=== PATIENT | male | born 1970 | race Caucasian/White ===

== ENCOUNTER 2020-05-25 13:34 | Emergency (ER) | payer OTHER, SELFPAY ==
--- NOTE | ~2020-05-25 | XR_ITS ---
EXAMINATION: XR chest 1V portable DATE: 05/25/2020 14:39 INDICATION: Cough and fever. TECHNIQUE: A single frontal view of the chest was obtained. COMPARISON: Chest 2 views 06/19/2017 FINDINGS: The chest demonstrates clear lungs without pneumonia, pleural effusion, or pneumothorax. Th e heart size is normal. IMPRESSION: 1. No acute cardiopulmonary disease. Reviewed, dictated and finalized at location B.
--- NOTE | 2020-05-25 14:00 | ECG_ITS ---
Measurements Intervals [place] Rate: 82 P: 81 CT: 126 QRS: 84 QRSD: 97 T: 72 QT: 365 QTc: 429 Interpretive Statements SINUS RHYTHM MINIMAL Q WAVES- INFERIOR LEADS BASELINE ARTIFACT- I, III, AVL BORDERLINE ECG Electronically Signed On 05-25-2020 14:33:12 CDT by Henry Gomez D.O.
--- NOTE | 2020-05-25 14:17 | ED.FEVER ---
HPI - Fever General Chief Complaint: Chest Pain Stated Complaint: cough, fever Time Seen by Provider: 05/25/20 13:39 Source: patient Mode of arrival: ambulatory Limitations: no limitations History of Present Illness HPI Narrative: This patient is a 49 year old male smoker who presents for evaluation of 4 days ago fever and fatigue. He reports he has not felt well for 4 days. He has fever, chills, and cough. His cough is clear phlegm. He reports constant chest pressure for 4 days and sob. His last fever was 101 F today. He denies nausea, vomiting or diarrhea. He denies sick known contacts. MD elicited complaint: fever and malaise Related Data Allergies Allergy/AdvReac Type Severity Reaction Status Date / Time epinephrine Allergy Unknown i flop on Verified 08/02/19 08:47 the floor tramadol AdvReac Mild Jittery Verified 08/02/19 08:47 Review of Systems Review of Systems: All systems reviewed & are unremarkable except as noted in HPI and below Constitutional: Constitutional: Reports fatigue and Reports fever(s) ENT: Reports nasal congestion Cardiovascular: Cardiovascular: Reports chest pain, Denies rapid heart rate and Denies slow heart rate Respiratory: Respiratory: Reports cough and Reports dyspnea Gastrointestinal: Gastrointestinal: Denies abdominal pain, Denies nausea and Denies vomiting Neurologic: Denies dizziness and Denies headache(s) PMFSH Past Medical History Medical History (Updated 05/25/20 @ 16:07 by Margarette Chauhan MD) Patient denies medical problems Surgical History Surgical History (Updated 05/25/20 @ 14:29 by Margarette Chauhan MD) No significant past surgical history Family History Family History (Updated 06/09/14 @ 07:13 by DOCTOR UNKNOWN) Other Family history of arthritis Family history of malignant neoplasm Hypertension Social History Social History Smoking status: Smoker, status unknown Alcohol intake: current Gender identity (if verbalized by the patient): Male Exam Narrative: Exam Narrative: GENERAL: Well-appearing, well-nourished, and in no acute distress. HEAD: Normocephalic, atraumatic EYES: PERRLA and EOMI, conjunctiva clear without discharge EARS: TM's clear bilaterally without erythema or dullness NOSE: Nares clear, no rhinorrhea or epistaxis THROAT:Mucous membranes moist, Oropharynx normal without erythema, exudate, peritonsillar swelling or fluctuance NECK: Supple, without lymphadenopathy or mass RESPIRATORY: No respiratory distress, Airway patent, Respirations non-labored, Clear to auscultation without rales, rhonchi or wheeze HEART: Regular rate and rhythm. No murmur heard. Normal peripheral pulses. ABDOMEN: Soft, nontender, nondistended, normal active bowel sounds. No masses. No rebound or guarding, No organomegaly. EXTREMITIES: No edema, normal strength with full range of motion. SKIN: Warm, dry, normal color without rash NEURO: Alert and oriented x3. CN 2-12 grossly intact. No focal deficits. PSYCH: Normal mood and affect. Course Reevaluation(s) Reevaluation #1: Nursing staff was stickin patient for blood and an IV. Patient became dizzy and had vasovagal episode. Hr dropped to 42 and BP dropped to 84/56. Nursing staff laid patient back in supine position with improvement of symptoms. His BP is now 109/80 Date: 05/25/20 Time: 15:10 Reevaluation #2: I Discussed with patient about labs and chest xray. He is stable for discharged. I have discussed that his sodium is slightly decreased and this is likely due to his alcohol use. Date: 05/25/20 Time: 16:04 Vital Signs Vital signs: Vital Signs Temperature 98.7 F 05/25/20 14:21 Pulse Rate 82 05/25/20 14:21 Respiratory Rate 18 05/25/20 14:21 Blood Pressure 113/80 05/25/20 14:21 Pulse Oximetry 97 05/25/20 14:21 Temperature 98.7 F 05/25/20 14:21 Pulse Rate 72 05/25/20 16:31 Respiratory Rate 18 05/25/20 16:31 Blood Pressure 128/70
[2020-05-25 14:21] VITALS: BP 113/80; PULSE 82; PULSE 84; RESP 18; TEMP 37.1; O2SAT 97
[2020-05-25 14:40] VITALS: BP 80/50; PULSE 47; RESP 28; O2SAT 98
--- NOTE | 2020-05-25 14:42 | PC.NURSE ---
after IV insertion pt became pale, clammy and stated he didnt feel well. Pt HR dropped to 42 and BP dropped to 80/50. Pt laid down flat and monitored.
[2020-05-25 14:48] VITALS: BP 84/56; PULSE 74; RESP 22; O2SAT 99
[2020-05-25] MEDS: SODIUM CHLORIDE 0.9% IV 1,000 ML 999 ML IV CONT (14:50)
[2020-05-25 15:02] LABS: Basophils Absolute Auto 0.1 K/mm3 (0.0-0.1); Basophils Percent Auto 0.4 % (0.2-1.2); Eosinophils Absolute Auto 0.1 K/mm3 (0-0.3); Eosinophils Percent Auto 0.3 % (0-4.4); Hematocrit 46.9 % (42.0-52.0); Immature Granulocyte Absolute 0.11 K/mm3 (0.00-0.031); Immature Granulocyte Percent A 0.7 % (0-0.5); Lymphocytes Absolute Auto 2.25 K/mm3 (0.9-3.2); Lymphocytes Percent Auto 15.1 % (18.3-44.2); Mean Corpuscular HGB Conc 34.1 g/dl (32-36); Mean Corpuscular Hemoglobin 32.7 pg (26-34); Mean Corpuscular Volume 95.7 fl (80-100); Mean Platelet Volume 8.9 fl (7.4-10.4); Monocytes Percent Auto 6.7 % (2.6-8.5); Neutrophils Absolute Auto 11.4 K/mm3 (1.3-6.7); Neutrophils Percent Auto 76.8 % (45.5-73.1); Platelet Count Result 229 k/mm3 (150-375); White Blood Count 14.9 K/mm3 (4.5-10.0)
[2020-05-25 15:16] LABS: Alanine Aminotransferase 42 U/L (4-50); Albumin Level 4.2 g/dL (3.5-5.1); Alkaline Phosphatase 92 U/L (38-126); Anion Gap 7 mmol/L (8-16); Aspartate Amino Transferase 40 U/L (17-59); Bilirubin,Total 0.9 mg/dL (0.2-1.3); Blood Urea Nitrogen 9 mg/dL (9-20); CRP 6.5 mg/dL (<1.0); Calcium 9.4 mg/dL (8.4-10.2); Carbon Dioxide 31 mmol/L (22-30); Chloride 94 mmol/L (98-107); Estimated Glomerular Filt Rate > 60; Glucose 137 mg/dL (75-110); Potassium 3.8 mmol/L (3.4-5.0); Sodium 132 mmol/L (137-145)
[2020-05-25 15:25] LABS: Troponin I < 0.012 ng/mL (0.000-0.034)
[2020-05-25 15:29] VITALS: BP 118/84; PULSE 68; RESP 18; O2SAT 98
[2020-05-25 15:48] LABS: Add Urine Microscopic? YES; Appearance Urine Clear (Clear); Bacteria Urine Trace /hpf; Bilirubin Urine Negative (Negative); Blood Urine Negative (Negative); Color Urine Amber (Yellow); Glucose Urine UA 3+ mg/dL (Negative); Ketones Urine Negative (Negative); Leukocyte Esterase Ur Negative LEU/UL (Negative); Mucus Urine Heavy /lpf; Nitrate Urine Negative (Negative); Protein Urine 1+ mg/dL (Negative); RBC Urine 0-2 /hpf (0-2); Specific Grav Ur 1.026 (1.001-1.035); Squamous Epithelial Cell Urine Rare /hpf (Few)
[2020-05-25 16:31] VITALS: BP 128/70; PULSE 72; RESP 18; O2SAT 98
[2020-05-26 01:07] LABS: SARS-CoV-2 RNA PCR Negative
== END 2020-05-25 16:32 | disposition home or self-care (01) ==
PROVIDERS: Emergency Provider General Practice; PCP Family Medicine
DX: E87.1 Hypo-osmolality and hyponatremia (principal); Z20.828 Contact with and (suspected) exposure to other viral communicable diseases
CPT/HCPCS: 36415; 71045; 80053; 81001; 84484; 85025; 86140; 87635; 93005; 96360; 96361; 99284; C9803; J7030; U0003

== ENCOUNTER 2021-08-17 19:07 | Emergency (ER) | payer OTHER, SELFPAY ==
--- NOTE | ~2021-08-17 | XR_ITS ---
XR wrist LT min 3V DATE: 08/17/2021 19:25 INDICATION: Fall. Left wrist injury, pain TECHNIQUE: 4 views COMPARISON: None FINDINGS: There is mild osteoarthritis at the first carpometacarpal joint. No fracture or dislocation, periosteal reaction or bone destruction is detected. Joint spaces are pre served. No erosive change or chondrocalcinosis. IMPRESSION: No fracture or dislocation Mild osteoarthritis at first carpometacarpal joint Reviewed, dictated and finalized at location A.
[2021-08-17 19:17] VITALS: BP 141/89; PULSE 93; RESP 16; TEMP 36.4; O2SAT 99
[2021-08-17 19:20] VITALS: BP 141/89; PULSE 93; RESP 16; TEMP 36.4; O2SAT 99
--- NOTE | 2021-08-17 19:42 | ED.UPPEXIN ---
HPI - Extremity Injury (Upper) General Chief Complaint: Extremity Injury, Upper Stated Complaint: Left wrist Pain Source: patient and RN notes reviewed Limitations: no limitations History of Present Illness HPI narrative: The right handed patient, previously mostly healthy, presents with left wrist pain. Patient states he slipped off a gutter striking solely his left wrist. He complains of mild pain that's worse with motion, better at rest ,located at an extensor cyst, which is now started to improve- since the event 3 hours ago. No other injury, neck pain, LOC, head?chest?abdominal?extremity pains. He declines available/in-house splinting for with a weather resistant, commercial splint Related Data Allergies Allergy/AdvReac Type Severity Reaction Status Date / Time epinephrine Allergy Unknown i flop on Verified 08/17/21 19:13 the floor tramadol AdvReac Mild Jittery Verified 08/17/21 19:13 Review of Systems Review of Systems: The patient has been informed that they may have pre-hypertension or Hypertension based on a BP reading in the department. I recommend that the patient call the primary care provider listed on their discharge instructions or a physician of their choice this week to arrange follow up for further evaluation of possible pre-hypertension or Hypertension General/Constitutional: No weight loss,fever Eyes: N0: Redness,discharge Ears/Nose/Throat: No: Epistaxis,ear discharge Respiratory: Denies: Hemoptysis Gastrointestinal: No Vomiting, Bleeding-rectal Skin: REPORTS Lumps, eruption Neurologic: No Focal Weakness,Sz Hematologic: Denies: Petechiae/Purpura Psychiatric: No: Suicida ideationl All Other Systems: Reviewed and Negative [facility] Past Medical History Medical History (Updated 08/19/21 @ 16:06 by Mamadou Navarrete MD) Patient denies medical problems Surgical History Surgical History (Updated 05/25/20 @ 14:29 by Margarette Chauhan MD) No significant past surgical history Family History Family History (Updated 06/09/14 @ 07:13 by DOCTOR UNKNOWN) Other Family history of arthritis Family history of malignant neoplasm Hypertension Social History Social History Smoking status: Smoker, status unknown Alcohol intake: current Gender identity (if verbalized by the patient): Male Comments At time of signature, agree with nursing past medical, surgical, social and family history. There is no relevant family history pertinent to the presenting complaint Exam Narrative: General Appearance: Well appearing, Well nourished, No distress EYE: PERRLA, EOMI, Conjunctiva clear Ears: External ear normal, Auditory canal normal Nose: Normal nose, Nares clear Mouth/Throat: Normal appearing, Normal lips Neck: Supple, nontender SROM/ FAROM Respiratory: Airway patent, No respiratory distress GI: soft, nontender Skin: Warm, Dry; Normal color, dime size ganglion cyst extensor wrist MS-wrist: Normal strength (mostly intact, limited flexion/extension by pain), Tenderness (extensor, with mild decreased ROM), Swelling -cystic, extensor , Other (no anterior drawer, no collateral laxity Neurological: A&O x3, Speech clear, CN II-XII intact Psychiatric: Normal mood, Normal affect Course Course Emergency Course: Films visualized, interpreted by radiologist, agree, normal see report Vital Signs Vital signs: Vital Signs Temperature 97.6 F 08/17/21 19:17 Pulse Rate 93 08/17/21 19:17 Respiratory Rate 16 08/17/21 19:17 Blood Pressure 141/89 H 08/17/21 19:17 Pulse Oximetry 99 08/17/21 19:17 Temperature 97.6 F 08/17/21 19:20 Pulse Rate 93 08/17/21 19:20 Respiratory Rate 16 08/17/21 19:20 Blood Pressure 141/89 H 08/17/21 19:20 Pulse Oximetry 99 08/17/21 19:20 Discharge Plan Discharge Clinical Impression: Ganglion cyst of finger of left hand, Encounter for post-traumatic wound check Osteoarthritis of left wrist Qualifiers: Osteoarthritis t
== END 2021-08-17 20:25 | disposition home or self-care (01) ==
PROVIDERS: Emergency Provider Emergency Medicine
DX: M67.442 Ganglion, left hand (principal); M19.032 Primary osteoarthritis, left wrist
CPT/HCPCS: 73110; 99213; G0463

== ENCOUNTER 2025-05-05 08:14 | Emergency (ER) | payer OTHER, SELFPAY ==
--- NOTE | ~2025-05-05 | CT_ITS ---
EXAM: CT abdomen pelvis wo con - 05/05/2025 10:35 CDT History: 54 years old Male with back pain TECHNIQUE: Multidetector CT of the abdomen and pelvis without contrast. Coronal and sagittal reforma ts were also provided for review. Automatic exposure control was used for this study. COMPARISON: None Available. FINDINGS: VISUALIZED CHEST: Multiple calcified granulomas are seen in the right hepatic lobe. ABDOMEN and PELVIS: LIVER: Within normal limits. GALLBLADDER: No calcified gallstones. BILE DUCTS: No dilatation. SPLEEN: Within normal limits. PANCREAS: Within normal limits. ADRENAL GLANDS: Within normal limits. KIDNEYS and URETERS: No hydronephrosis or hydroureter. No nephroureterolithiasis. URINARY BLADDER: Within normal limits. STOMACH and BOWEL: No abnormal bowel wall thickening. No obstruction. REPRODUCTIVE ORGANS: Within normal limits. MESENTERY/PERITONEAL CAVITY: No free fluid or pneumoperitoneum. LYMPH NODES: No abdominal or pelvic lymphadenopathy. ABDOMINAL WALL: Within normal limits. VASCULATURE: Within normal limits. MUSCULOSKELETAL: Multilevel degenerative changes of the spine. Grade 1 anterolisthesis of L4 on L5, l ikely degenerative. IMPRESSION: No evidence of acute pathology in the abdomen and pelvis. Reviewed, dictated and finalized at location A.
--- OUTSIDE RECORDS SUMMARY | 2025-05-05 08:17 | XMS_ITS | Continuity of Care Document ---
Author Organization [facility] Address [address] [facility] [place] [address] Phone Care Team Providers Care Manager Trade Name Role Phone Stephane Izquierdo MD Unavailable Unavailable Allergies, Adverse Reactions, Alerts Substance Reaction Status Criticality epinephrine Active No Information Medications Medication Instructions Dosage Effective Dates (start - stop) Status Comments fenofibrate 160 mg tablet take 1 tablet (160MG) by oral route every day 160 MG - Active Sandoval 5 mg-325 mg tablet take 1 tablet by oral route every 6 hours as needed for pain - Active avoid driving or operate machines naproxen 500 mg tablet take 1 tablet (500MG) by oral route 2 times every day with food 500 MG - Active Procedures Procedure Date OFFICE/OUTPATIENT VISIT, [facility] PREV VISIT, [facility], AGE 40-64 Advance Directives Directive Yes / No Effective Date File Name No Information Encounters Encounter Description Practice Location Reason(s) For Visit Diagnoses Date Provider Providers Copied on Encounter OFFICE/OUTPA TIENT VISIT, [facility], [address] [place], [place] [address], [id number], tel:[phone] [facility] back pain (chief complaint) LFT (chief complaint) alcohol (chief complaint) Unspecified chronic liver disease without mention of alcoholOther and unspecified hyperlipidemiaLumba goNondependent alcohol abuse, continuous drinking behavior [address]. [address] [facility] [place], [id number] , [place]. tel:[phone] Referring Provider: Stephane Izquierdo, [address], [place], [id number]. tel:[phone] PREV VISIT, NEW, AGE 40-64 [facility], [address] [place], [place], [id number], [place] tel:[phone] [facility] Medicine Physical (chief complaint) Routine Medical ExamRoutine Medical Exam [address]. [address], [place], [place], [id number] , [place]. tel:[phone] Family History Family Member Type Diagnosis Age At Onset Father Problem (finding) Hypertension Brother Problem (finding) Alive and well Mother Problem (finding) Alive and well Payers Payer name Insurance type Covered constitution party ID Authoriza tion(s) No Information Social History Type Description Quantity Date Captured Comments Alcohol Use Details 2 beers daily Caffeine Use Details Unknown Tobacco Use Status No Information Smoking Status Current every day smoker 2013 Sex Male Vital Signs Date / Time: Height Weight BMI Pulse Rate Blood Pressure Temperature Respiratory Rate Body Surface Area Head Circumference BMI percentile Pulse Ox Inhaled Ox 5:29 PM 66.00 in 141.00 lbs 22.7 6 kg/m eter (2) 77 /min 127/81 mm[Hg] 98.4 F 16 /min Chief Complaint And Reason For Visit From encounter dated '08/11/2014 15:30'. back pain (chief complaint) LFT (chief complaint) alcohol (chief complaint) Plan Of Treatment Date Type Action Status Goal Tobacco cessation counseling completed Goal Tobacco cessation counseling completed Referral Ordered: US EXAM, ABDOM, COMPLETE ordered Referral Ordered: KNEE XRAY TWO-VIEW Bilateral ordered History Of Present Illness Encounter Date Complaint History Of Prese nt Illness No Information Instructions Date Instruction Additional Infor mation No Information Assessments Type Assessment Date No Information Mental Status Date Cognitive Assessment Orientation - [place] ed to time, place, person, situation.
--- OUTSIDE RECORDS SUMMARY | 2025-05-05 08:17 | XMS_ITS | Data Portability ---
Author Organization [facility] LORRAINEAndrez Address [address] [place] [address] Assessment No assessment recorded. Plan of Treatment Reminders Order Date Submit Date Provider Last Modified By Organization Details Last Modified Time Details Appointments None recorded . Lab PSA, total, serum or plasma 2018 019 [facility], [address], [place], [address], 9 11:06:17 vitamin D, 25-hydro xy, total, serum 2018 019 [facility], [address], [place], [address], 9 11:06:17 CMP, serum or plasma 2018 [facility], [address], [place], [address], 9 09:31:41 lipid panel, serum 2018 019 [facility], [address], [place], [address], 9 11:01:03 hepatiti s C virus RNA, quant, PCR, serum or plasma 2018 019 [facility], [address], [place], [address], 9 10:59:54 hepatiti s B core Ab, total, serum 2018 019 [facility], [address], [place], [address], 9 10:59:53 vitamin D, 25-hydro xy, total, serum 2018 019 [facility], [address], [address], [place], [address], 9 15:30:52 lipid panel, serum 2018 019 [facility], [address], [place], [address], 9 15:30:53 CMP, serum or plasma [address] [facility], [address], [place], [address], 9 11:31:55 CBC w/ auto diff [address] [facility], [address], [place], [address], 9 11:31:55 testoste trudy, total, serum 2018 019 [facility], [address], [place], [address], 9 15:30:53 TSH, ultra-se nsitive, serum 2018 019 [facility], [address], [place], [address], 9 15:30:53 lipid panel, serum 2014 016 [facility], [address], [place], [address], 6 10:06:27 hepatiti s C virus RNA, quant, PCR, serum or plasma 2014 015 [address], [address], [place], [address], 5 10:11:20 hepatic function panel, serum 2014 015 [address], [address], [place], [address], 5 10:11:18 lipid panel, serum 2014 015 [address], [address], [place], [address], 6 11:28:09 drug screen, 5 drugs, urine 2014 015 [address], [address], [place], [address], 5 10:11:19 CBC w/ auto diff 2014 015 [address], [address], [place], [address], 5 07:39:14 CMP, serum or plasma 2014 015 [address], [address], [place], [address], 5 07:39:13 lipid panel, serum 2014 015 [address], [address], [place], [address], 5 07:39:13 urinalys is, complete 07/24/ 2015 07/24/2 015 [facility], [address], [place], [address], 5 07:39:14 hepatiti s C Ab, serum 2014 015 [facility], [address], [place], [address], 5 07:39:14 HIV (1+O+2) Ab, serum 2014 015 asavala [facility], [address], [place], [address], 5 10:05:03 Referral hepatolo gist referral - Please contact patient and schedule appt. Please send consult note after initial visit. Thank You 2018 019 [facility] Gastroenterol [facility]/Hepatolog y, [address], [place], [address], 0 14:28:13 physical therapy back referral 2018 019 [facility], [address], [place], [address], 9 11:10:18 interven [address] medicine speciali st referral - Chronic LBB, disc bulges, foramina l stenosis 2014 015 [email or web address] Torrey Ugarte MD, [address] [facility], [place], [address], 6 12:13:[address] referral - Chronic Hep C 2014 015 ARMEN Raya MD, [address] [facility], [place], [address], 6 12:34:24 physical therapy back referral - Chronic lower pain 2014 015 [facility] Occupational [facility], [address], [place], [address], 5 14:32:56 Procedures None recorded . Surgeries None recorded . Imaging XR, lumbar spine 2018 019 [facility], [address], [place], [address], 9 11:23:57 XR, hip, bilatera l, 3 or 4 view 2018 019 [facility], [address], [place], [address], 9 11:23:57 MRI, LS-spine - Low back pain 2014 015 [facility] (Admitting), [address], [place], [address], 5 20:14:00 x-ray, chest, 2 view - Smoker 2014 015 ARMEN Not available 5 15:04:00 ultrasou nd, liver - Liver disease 2014 015 ARM[facility] Not available 5 15:09:12 Medication Orders hydrocod one 5 mg-aceta minophen 325 mg tablet 2018 019 [email or web address] [facility], [address], [place], [address], 9 11:16:26 Patient TargetsNo targets recorded. Patient Instructions Encounter Date Encounter Id Patient Instructions Last Modified By Organization Details Last Modified Time 08/21/2015 [id number] high cholesterol : care instructions [email or web address] Not available 08/21/2015 17:26:38 03/25/2019 [id number] high cholesterol : care instructions Not available 03/25/2019 15:30:41 home sleep testing* [email or web address] Not available 04/26/2019 12:43:18 05/19/2019 [id number] hepatitis C: car e instructions [email or web address] Not available 05/19/2019 10:59:49 learning about hepatitis C [email or web address] Not available 05/19/2019 10:59:49 Reason for Referral Chronic lower pain Referring Physician: Asad Interiano, Internal Medicine, Encounter Date: 08/21/2015 Chronic Hep C Referring Physician: Asad Interiano, Internal Medicine, Encounter Date: 10/09/2015 Interventional Pain Medicine Specialist Referral for Low back pain Chronic LBB, disc bulges, foraminal stenosis Referring Physician: Asad Interiano, Internal Medicine, Encounter Date: 10/09/2015 Referring Physician: Dayna frausto, [facility], Encounter Date: 03/25/2019 [employer] Coord[employer] Referral for Vi ral hepatitis C Please contact patient and schedule appt. Please send consult note after initial visit. Thank You Referring Physician: Dayna Subramanian, [facility], Encounter Date: 05/19/2019 Results Created Date Observation Date Name Description Value Unit Range Abnormal Flag Note LastModifiedBy Organization Detail LastModifiedTime 05/23/20 15 05/24/2015 lipid panel , serum cholesterol, total 203 mg/dL 125-20 0 high Not Available [facility] [address] [address] [place], [address], 05/24/2015 07:39:12 05/23/20 15 05/24/2015 lipid panel , serum HDL cholesterol 86 mg/dL > or = 40 normal Not Available [facility] [address] [place], [address], 05/24/2015 07:39:12 05/23/20 15 05/24/2015 lipid panel , serum triglyceride s 70 mg/dL <150 normal Not Available [facility] [address] [place], [address], 05/24/2015 07:39:12 05/23/20 15 05/24/2015 lipid panel , serum LDL-choleste rol 103 mg/dL _(moriah c) <130 normal Mar able range <100 mg/dL for patie nts with CHD or diabe sandeep and <70 mg/dL for diabe tic patie nts with known heart disea se. Not Available [facility] [address], [place], [address], 05/24/2015 07:39:12 05/23/2005/24/2015 lipid panel , serum chol/HDLC ratio 2.4 (calc ) < or = 5.0 normal Not Available [facility] [address], [place], [address], 05/24/2015 07:39:12 05/23/20 15 05/24/2015 lipid panel , serum non HDL cholesterol 117 mg/dL _(moriah c) normal Targe t for non-H DL derick stero l is 30 mg/dL highe r than LDL derick stero l targe t. Not Available [facility] [address], [place], [address], 05/24/2015 07:39:12 05/23/2005/24/2015 HIV 1+2 Ab + HIV1 p24 Ag, quant itati ve immun oassa y, serum HIV Ag/Ab, 4TH gen NON-RE ACTIVE non-re active normal A Nonre activ e HIV Ag/Ab resul t does not exclu de HIV infec tion since the time frame for seroc onver trent is varia ble. If acute HIV infec tion is suspe cted, a HIV-1 RNA Quali tativ e TMA test is recom sean Diaz NOTE: This infor matio n has been discl osed to you from recor ds whose confi denti ality may be prote cted by state law. If your state requi res such prote ction , then the state law prohi bits you from leona escalera er discl osure of the infor matio n witho ut the speci fic writt en conse nt of the perso n to whom it perta ins, or as other burnette permi tted by law. A gener al autho lupe ion for the relea se of medic al or other infor matio n is NOT suffi cient for this purpo se. The perfo rmanc e of this assay has not been clini cristopher valid ated in patie nts less than 2 years old. For addit ional infor matio n pleas e refer to http: //[facility] [email or web address] jo.[email or web address] stdia gnost ics.c om/fa q/FAQ 106 (This link is being provi ded for infor matio nal/ educa chemo l purpo ses only. ) Not Available [facility] [address], [address], 05/24/2015 07:39:13 05/23/2005/24/2015 CMP, serum or plasm a glucose 89 mg/dL 65-99 normal Fasti ng refer ence inter art Not Available [facility] [address], [address], 05/24/2015 07:39:13 05/23/2005/24/2015 CMP, serum or plasm a urea nitrogen (BUN) 11 mg/dL 7-25 normal Not Available [facility] [address], [address], 05/24/2015 07:39:13 05/23/20 15 05/24/2015 CMP, serum or plasm a creatinine 0.80 mg/dL 0.60-1 .35 normal Not Available [facility] [address], [address], 05/24/2015 07:39:13 05/23/2005/24/2015 CMP, serum or plasm a eGFR non-afr. togolese 107 mL/mi n/1.7 3m2 > or = 60 normal Not Available [facility] [address], [address], 05/24/2015 07:39:13 05/23/20 15 05/24/2015 CMP, serum or plasm a eGFR 124 mL/mi n/1.7 3m2 > or = 60 normal Not Available [address], [address], 05/24/2015 07:39:13 05/23/20 15 05/24/2015 CMP, serum or plasm a BUN/creatini ne ratio NOT APPLIC ABLE (calc ) 6-22 Not Available [address], [address], 05/24/2015 07:39:13 05/23/20 15 05/24/2015 CMP, serum or plasm a sodium 141 mmol/ L 135-14 6 normal Not Available [address], [address], 05/24/2015 07:39:13 05/23/20 15 05/24/2015 CMP, serum or plasm a potassium 4.5 mmol/ L 3.5-5. 3 normal Not Available [address], [address], 05/24/2015 07:39:13 05/23/2005/24/2015 CMP, serum or plasm a chloride 101 mmol/ L 98-110 normal Not Available [address], [address], 05/24/2015 07:39:13 05/23/20 15 05/24/2015 CMP, serum or plasm a carbon dioxide 31 mmol/ L 19-30 high Not Available [address], [address], 05/24/2015 07:39:13 05/23/20 15 05/24/2015 CMP, serum or plasm a calcium 9.7 mg/dL 8.6-10 .3 normal Not Available [address], [address], 05/24/2015 07:39:13 05/23/20 15 05/24/2015 CMP, serum or plasm a protein, total 7.0 g/dL 6.1-8. 1 normal Not Available [address], [address], 05/24/2015 07:39:13 05/23/2005/24/2015 CMP, serum or plasm a albumin 4.4 g/dL 3.6-5. 1 normal Not Available [address], [address], 05/24/2015 07:39:13 05/23/2005/24/2015 CMP, serum or plasm a globulin 2.6 g/dL_ (calc ) 1.9-3. 7 normal Not Available [address], [address], 05/24/2015 07:39:13 05/23/20 15 05/24/2015 CMP, serum or plasm a albumin/glob ulin ratio 1.7 (calc ) 1.0-2. 5 normal Not Available [address], [address], 05/24/2015 07:39:13 05/23/2005/24/2015 CMP, serum or plasm a bilirubin, total 0.8 mg/dL 0.2-1. 2 normal Not Available [address] [address] [place], [address], 05/24/2015 07:39:13 05/23/2005/24/2015 CMP, serum or plasm a alkaline phosphatase 90 U/L 40-115 normal Not Available [facility] [address] [address] [place], [address], 05/24/2015 07:39:13 05/23/2005/24/2015 CMP, serum or plasm a AST 90 U/L 10-40 high Not Available [address] [address] [place], [address], 05/24/2015 07:39:13 05/23/2005/24/2015 CMP, serum or plasm a ALT 57 U/L 9-46 high Not Available [address], [address], 05/24/2015 07:39:13 05/23/20 15 05/24/2015 urina lysis , compl ete color DARK YELLOW yellow normal Not Available [address], [address], 05/24/2015 07:39:14 05/23/20 15 05/24/2015 urina lysis , compl ete appearance CLEAR clear normal Not Available [address], [address], 05/24/2015 07:39:14 05/23/20 15 05/24/2015 urina lysis , compl ete specific gravity 1.017 1.001- 1.035 normal Not Available [address], [address], 05/24/2015 07:39:14 05/23/20 15 05/24/2015 urina lysis , compl ete pH 6.5 5.0-8. 0 normal Not Available [address], [address], 05/24/2015 07:39:14 05/23/20 15 05/24/2015 urina lysis , compl ete glucose NEGATI VE negati ve normal Not Available [address], [address], 05/24/2015 07:39:14 05/23/20 15 05/24/2015 urina lysis , compl ete bilirubin NEGATI VE negati ve normal Not Available [address], [address], 05/24/2015 07:39:14 05/23/20 15 05/24/2015 urina lysis , compl ete ketones NEGATI VE negati ve normal Not Available [address] [place], [address], 05/24/2015 07:39:14 05/23/20 15 05/24/2015 urina lysis , compl ete occult blood NEGATI VE negati ve normal Not Available [facility] [address] [address] [place], [address], 05/24/2015 07:39:14 05/23/20 15 05/24/2015 urina lysis , compl ete protein NEGATI VE negati ve normal Not Available [facility] [address] [address] [place], [address], 05/24/2015 07:39:14 05/23/20 15 05/24/2015 urina lysis , compl ete nitrite NEGATI VE negati ve normal Not Available [facility] [place], [address], 05/24/2015 07:39:14 05/23/20 15 05/24/2015 urina lysis , compl ete leukocyte esterase NEGATI VE negati ve normal Not Available [facility] [address] [address] [place], [address], 05/24/2015 07:39:14 05/23/20 15 05/24/2015 urina lysis , compl ete WBC NONE SEEN /hpf < or = 5 normal Not Available [address] [address] [place], [address], 05/24/2015 07:39:14 05/23/20 15 05/24/2015 urina lysis , compl ete RBC NONE SEEN /hpf < or = 2 normal Not Available [facility] [address] [address] [place], [address], 05/24/2015 07:39:14 05/23/20 15 05/24/2015 urina lysis , compl ete squamous epithelial cells NONE SEEN /hpf < or = 5 normal Not Available [address] [address] [place], [address], 05/24/2015 07:39:14 05/23/20 15 05/24/2015 urina lysis , compl ete bacteria NONE SEEN /hpf none seen normal Not Available [address], [address], 05/24/2015 07:39:14 05/23/20 15 05/24/2015 urina lysis , compl ete hyaline cast NONE SEEN /lpf none seen normal Not Available [address], [address], 05/24/2015 07:39:14 05/23/20 15 05/24/2015 CBC w/ auto diff white blood cell count 5.7 thous and/u L 3.8-10 .8 normal Not Available [address], [address], 05/24/2015 07:39:14 05/23/20 15 05/24/2015 CBC w/ auto diff red blood cell count 4.49 dameon on/uL 4.20-5 .80 normal Not Available [address], [address], 05/24/2015 07:39:14 05/23/20 15 05/24/2015 CBC w/ auto diff hemoglobin 14.8 g/dL 13.2-1 7.1 normal Not Available [address], [address], 05/24/2015 07:39:14 05/23/20 15 05/24/2015 CBC w/ auto diff hematocrit 45.2 % 38.5-5 0.0 normal Not Available [address], [address], 05/24/2015 07:39:14 05/23/20 15 05/24/2015 CBC w/ auto diff MCV 100.7 fL 80.0-1 00.0 high Not Available [address], [address], 05/24/2015 07:39:14 05/23/20 15 05/24/2015 CBC w/ auto diff MCH 32.9 pg 27.0-3 3.0 normal Not Available [address], [address], 05/24/2015 07:39:14 05/23/20 15 05/24/2015 CBC w/ auto diff MCHC 32.7 g/dL 32.0-3 6.0 normal Not Available [address], [address], 05/24/2015 07:39:14 05/23/20 15 05/24/2015 CBC w/ auto diff RDW 13.7 % 11.0-1 5.0 normal Not Available [address], [address], 05/24/2015 07:39:14 05/23/20 15 05/24/2015 CBC w/ auto diff platelet count 234 thous and/u L 140-40 0 normal Not Available [address], [address], 05/24/2015 07:39:14 05/23/20 15 05/24/2015 CBC w/ auto diff MPV 7.2 fL 7.5-11 .5 low Not Available [address], [address], 05/24/2015 07:39:14 05/23/2005/24/2015 CBC w/ auto diff absolute neutrophils 3329 cells /uL 1500-7 800 normal Not Available [address], [address], 05/24/2015 07:39:14 05/23/20 15 05/24/2015 CBC w/ auto diff absolute lymphocytes 1807 cells /uL 850-39 00 normal Not Available [address], [address], 05/24/2015 07:39:14 05/23/20 15 05/24/2015 CBC w/ auto diff absolute monocytes 371 cells /uL 200-95 0 normal Not Available [address], [address], 05/24/2015 07:39:14 05/23/20 15 05/24/2015 CBC w/ auto diff absolute eosinophils 177 cells /uL 15-500 normal Not Available [address], [address], 05/24/2015 07:39:14 05/23/20 15 05/24/2015 CBC w/ auto diff absolute basophils 17 cells /uL 0-200 normal Not Available [address], [address], 05/24/2015 07:39:14 05/23/20 15 05/24/2015 CBC w/ auto diff neutrophils 58.4 % normal Not Available [address], [address], 05/24/2015 07:39:14 05/23/20 15 05/24/2015 CBC w/ auto diff lymphocytes 31.7 % normal Not Available [address], [address], 05/24/2015 07:39:14 05/23/20 15 05/24/2015 CBC w/ auto diff monocytes 6.5 % normal Not Available [address], [address], 05/24/2015 07:39:14 05/23/20 15 05/24/2015 CBC w/ auto diff eosinophils 3.1 % normal Not Available [address], [address], 05/24/2015 07:39:14 05/23/20 15 05/24/2015 CBC w/ auto diff basophils 0.3 % normal Not Available [address], [address], 05/24/2015 07:39:14 05/23/20 15 05/24/2015 hepat itis C virus Ab, serum hepatitis C antibody REACTI VE non-re active abnormal Not Available [address], [address], 05/24/2015 07:39:14 05/23/20 15 05/24/2015 hepat itis C virus Ab, serum signal to cut-off 27.00 <1.00 high After a posit jacqui Hepat itis C antib daylin test, an FDA-a pprov ed HCV CLAIRE (also refer red to as an HCV RNA test ) shoul d be used to ident leola HCV infec tion. A sampl e with a high S/CO ratio will repea t as posit jacqui using a diffe rent antib daylin detec tion metho dolog y 95% of the time or great er. ([facility] MMWR No. RR-3, 2002) . Addit ional antib daylin testi ng is not recom sean d. Not Available [address], [address], 05/24/2015 07:39:14 08/25/20 15 08/29/2015 hepat ic funct ion panel , serum protein, total 7.3 g/dL 6.1-8. 1 normal Not Available [address], [address], 09/05/2015 10:11:18 08/25/20 15 08/29/2015 hepat ic funct ion panel , serum albumin 4.7 g/dL 3.6-5. 1 normal Not Available [address], [address], 09/05/2015 10:11:18 08/25/20 15 08/29/2015 hepat ic funct ion panel , serum globulin 2.6 g/dL_ (calc ) 1.9-3. 7 normal Not Available [address], [address], 09/05/2015 10:11:18 08/25/20 15 08/29/2015 hepat ic funct ion panel , serum albumin/glob ulin ratio 1.8 (calc ) 1.0-2. 5 normal Not Available [address], [address], 09/05/2015 10:11:18 08/25/20 15 08/29/2015 hepat ic funct ion panel , serum bilirubin, total 1.0 mg/dL 0.2-1. 2 normal Not Available [address], [address], 09/05/2015 10:11:18 08/25/20 15 08/29/2015 hepat ic funct ion panel , serum bilirubin, direct 0.2 mg/dL < or = 0.2 normal Not Available [address], [address], 09/05/2015 10:11:18 08/25/20 15 08/29/2015 hepat ic funct ion panel , serum bilirubin, indirect 0.8 mg/dL _(moriah c) 0.2-1. 2 normal Not Available [address], [address], 09/05/2015 10:11:18 08/25/20 15 08/29/2015 hepat ic funct ion panel , serum alkaline phosphatase 74 U/L 40-115 normal Not Available [address] [address] [place], [address], 09/05/2015 10:11:18 08/25/20 15 08/29/2015 hepat ic funct ion panel , serum AST 104 U/L 10-40 high Not Available [address], [address], 09/05/2015 10:11:18 08/25/20 15 08/29/2015 hepat ic funct ion panel , serum ALT 75 U/L 9-46 high Not Available [address], [place], [address], 09/05/2015 10:11:18 08/25/20 15 08/29/2015 drug scree n, urine benzodiazepi felicitas negati ve Not Available [address], [place], [address], 09/05/2015 10:11:19 08/25/20 15 08/29/2015 drug scree n, urine cocaine negati ve Not Available [address], [place], [address], 09/05/2015 10:11:19 08/25/20 15 08/29/2015 drug scree n, urine marijuana negati ve Not Available [address], [place], [address], 09/05/2015 10:11:19 08/25/20 15 08/29/2015 drug scree n, urine methadone negati ve Not Available [address], [place], [address], 09/05/2015 10:11:19 08/25/20 15 08/29/2015 drug scree n, urine opiates POSITI VE abnormal Not Available [address], [place], [address], 09/05/2015 10:11:19 08/25/20 15 08/29/2015 drug scree n, urine comment SEE NOTE DRUG CLASS Initi al Confi rmati on Test Level Level Benzo diaze pines 300 NA Cocai ne Metab olite s 300 NA Marij uana Metab olite s 50 5 Metha done 300 NA Opiat es 300 NA *Thes e resul ts are for medic al treat ment only* *Anal ysis was perfo rmed as non-f orens ic testi ng* Not Available [facility] [address] [address] [address], [place], [address], 09/05/2015 10:11:19 08/25/20 15 08/29/2015 hepat itis C virus RNA, quant , PCR, serum or plasm a HCV RNA, quantitative real time PCR [id number] IU/mL <15 high Not Available [address], [address], 09/05/2015 10:11:20 08/25/20 15 08/29/2015 hepat itis C virus RNA, quant , PCR, serum or plasm a HCV RNA, quantitative real time PCR 5.83 log_I U/mL <1.18 high Not Available [facility] [address] [place], [address], 09/05/2015 10:11:20 08/25/20 15 08/29/2015 hepat itis C virus RNA, quant , PCR, serum or plasm a comment This test was perfo rmed using the KELLY (R)Am pliPr ep/ KELLY (R)Ta qMan( R)HCV Test, v2.0. The perfo rmanc e sebas cteri stics of this assay have been deter mined by [facility] aisha dueñas. Perfo rmanc e sebas cteri stics refer to the kathleen tical perfo rmanc e of the test. For more infor caro jo on this test, go to: http: //jonathon chaudhary stdia gnost ics.c om/fa q/FAQ 22v1 (This link is being provi ded for infor caro brownlee/ bentley mesa ses only. ) Not Available [facility] [address] [address] [place], [address], 09/05/2015 10:11:20 12/29/19 16 12/29/2015 lipid panel , serum cholesterol level 200 mg/dL 0-200 normal Not Available [facility] (Lab) [address], [place], [address], 12/29/2015 10:06:27 12/29/19 16 12/29/2015 lipid panel , serum triglyceride s level 71 mg/dL <150 mg/dL normal Not Available [facility] (Lab) [address] [place], [place] [address] [address] [place] [address], [address], 12/29/2015 10:06:27 12/29/19 16 12/29/2015 lipid panel , serum LDL direct cholesterol 77 mg/dL normal < 130 mg/dl MAR ABLE 130-1 59 mg/dl BORDE RLINE HIGH RISK > 160 mg/dl HIGH RISK Not Available [facility] (Lab) [address] [place] [address], [phone], 12/29/2015 10:06:27 12/29/19 16 12/29/2015 lipid panel , serum HDL direct cholesterol 94 mg/dL normal EXPEC ELIZABETH RANGE > 35 MG/DL Not Available [facility] (Lab) [address] [place] [address], [phone], 12/29/2015 10:06:27 12/29/19 16 12/29/2015 lipid panel , serum results ML - Produ cer Id infor matio n not found for OBX-s pecif ic produ cer legen d Not Available [facility] (Lab) [address] [place] [address], [phone], 12/29/2015 10:06:27 05/09/20 15 05/09/2015 XR, elbow , 3 or more view No observ ation record ed. [address], [address], 06/18/2016 14:29:13 05/09/20 15 05/09/2015 XR, hand, 3 or more view No observ ation record ed. [address], [address], 06/18/2016 14:29:35 05/09/20 15 05/09/2015 XR, wrist , 3 or more view No observ ation record ed. [address], [address], 06/18/2016 14:29:58 05/09/20 15 05/09/2015 XR, shoul zandra, 2 or more view No observ ation record ed. [email or web address] [facility] [address], [place], [address], 06/18/2016 14:30:20 06/09/20 15 06/09/2015 ultra sound , liver No observ ation record ed. [email or web address] Not Available 2014 16:24:40 06/09/20 15 06/09/2015 x-ray , chest , 2 view No observ ation record ed. [facility] [address], [place], [address], 08/21/2015 16:24:40 06/14/20 15 06/14/2015 imagi ng/di agnos tic resul t No observ ation record ed. oao Not Available 2014 16:24:40 06/14/20 15 06/14/2015 imagi ng/di agnos tic resul t No observ ation record ed. oao Not Available 2014 16:24:40 08/24/20 15 08/24/2015 mricw o PT NAME: ADOLFO FISCHER : 1970 PT SEX/AG E: M/44 PT ACCT NUMBER : [id number] PT MR#: [id number] ROOM/B ED: PT STATUS : REG CLI DATE OF EXAMIN ATION: ASHLEY YEH PHYSIC LARISSA: SERGIO INTERIANO * MUvaldo ATTEND ING PHYSIC LARISSA: SERGIO INTERIANO *, MUvaldo DICTAT ING PHYSIC LARISAS: ROB HUNTER M.D. 010 MRI LUMBAR SPINE W/O INDICA TION: Low back pain. TECHNI QUE: Multi- sequen tial, multip lanar MR images of the lumbar spine were obtain ed withou t contra st. Basurto al T1, T2, T2 fat satura tion images . Axial T2 weight ed images . The exam was review ed on . There are no prior studie s availa ble for compar danae. FINDIN GS: There is 3 mm retrol isthes is L5 on S1. The verteb ral bodies are otherw ise aligne d. Mild loss of the disc height L2-L3, mild to modera te at L5-S1. The conus medull savita termin ates at the T12 -L1 level and has normal signal intens ity and morpho logy. There are some degene rative endpla te signal change s L5-S1. There are no focal verteb ral body lesion s identi fied. Parasp inal soft tissue is unrema rkable . Level by level evalua tion: T12-L1 : Disc does not extend beyond the endpla te margin . Facet arthro joana: None. Neural forami nal stenos is: No stenos is. Centra l canal stenos is: No stenos is. L1-L2: Disc does not extend beyond the endpla te margin . Facet arthro joana: None. Neural forami nal stenos is: No stenos is. Centra l canal stenos is: No stenos is. L2-L3: There is a mild to modera te diffus e disc bulge. Facet arthro joana: Mild. Neural forami nal stenos is: Mild to modera te left, mild right. Centra l canal stenos is: Mild. L3-L4: There is a mild diffus e disc bulge. Facet arthro joana: Mild. Neural forami nal stenos is: Mild bilate ral. Centra l canal stenos is: No stenos is. L4-L5: There is a mild to modera te disc bulge asymme tric to the right. Facet arthro joana: Mild to modera te. Neural forami nal stenos is: Modera te bilate ral, right more than left. Centra l canal stenos is: Mild to modera te. L5-S1: There is a mild to modera te disc bulge asymme tric to the right. Facet arthro joana: Mild to modera te. Neural forami nal stenos is: Modera te to severe left, modera te right. Centra l canal stenos is: Mild to modera te. IMPRES TRENT: 1. Modera te to severe left neural forami nal stenos is L5-S1. 2. Lesser spondy losis above. __ Review ed, dictat ed and finali zed at [facility] on B. __ Electr onical ly signed by: ROB HUNTER Date: Time: 15:49 ROB HUNTER M.D.__ ___ [facility] [address] [place] [address] [facility] (Imaging) [facility] [address], [place], [address], 10/09/2015 10:58:57 08/24/20 15 08/24/2015 MRI, LS-sp ine No observ ation record ed. [facility] (Imaging) [facility], [place], [address], 10/09/2015 10:58:57 08/28/20 15 08/28/2015 imagi ng/di agnos tic resul t No observ ation record ed. oajao Not Available 2014 10:58:57 10/20/19 16 10/20/2015 imagi ng/di alicia tic resul t No observ ation record ed. oajao Not Available 2015 14:54:38 05/25/20 20 05/25/2020 XR, chest No observ ation record ed. [facility] ([facility]) [address], [place], [address], 05/26/2020 09:00:54 Result Notes None recorded. Problems Name Problem SNOMED Code Status Onset Date Resolution Date Notes Provider Name and Address Organization Details Recorded Time Tobacco user 174633616 Active Asad Interiano MD Attn: Yoel krishnan,[address], [place], [address], [place] [facility] 5 16:16:54 Disease of liver 514738451 Active Asad Interiano MD Attn: Yoel krishnan,[address] [place], [address], [place] [facility] 5 16:16:54 Fracture of hand 83380260 Active Asad Interiano MD Attn: Yoel g,[address], [place], [address], [place] [facility] 5 16:16:54 Steatotic liver disease 109815053 Active Asad Interiano MD Attn: Yoel g,[address], [place], [address], [place] [facility] 5 17:26:37 Abnormal liver function 15240845 Active Asad Interiano MD Attn: Yoel g,[address], [place], [address], [place] [facility] 5 17:26:37 Low back pain 184593466 Active Asad Interiano MD Attn: Yoel g,[address] [place], [address], [place] [facility] 5 11:13:32 Pure hypercholester olemia 467698779 Active Asad Interiano MD Attn: Yoel krishnan,[address], [place], [address], [facility] 5 17:26:38 Chronic hepatitis C 734040166 Active Asad Interiano MD Attn: Yoel g,[address], [place], [address], [facility] 5 11:13:32 Disorder of lipid metabolism 033670773 Active Asad Interiano MD Attn: Yoel g,[address], [place], [address], [facility] 5 11:13:32 Problem Notes None recorded. Medical Equipment None Reported. Allergies No known drug allergies Medications Name Sig Start Date Stop Date Status Note LastModified by Organization Details LastModified Time cyclobenzapr ine 10 mg tablet active Not Available Not Available Not Available hydrocodone 5 mg-acetamino phen 325 mg tablet Take 1 tablet every 6 hours by oral route. 2018 active Not Available Not Available Not Avai lable tramadol 50 mg tablet 08/21 completed Not Available Not Available Not Available baclofen 10 mg tablet 05/19 completed Not Available Not Available Not Available hydrocodone 7.5 mg-acetamino phen 325 mg tablet 10/09 completed Not Available Not Available Not Available prednisone 50 mg tablet active Not Available Not Available Not Available ibuprofen 600 mg tablet 10/09 completed Not Available Not Available Not Available naproxen 500 mg tablet active Not Available Not Available No t Available fenofibrate 160 mg tablet 08/21 completed Not Available Not Available Not Available Aleve active Not Available Not Availa ble Not Available Nexium 08/21 completed Not Available Not Available Not Available Nexium 24HR 20 mg capsule,helen yed release Take 1 capsule every day by oral route. active Not Available Not Available No t Available Vitals Date Recorded Body weight Body height Body mass index (BMI) Oxygen saturation Oxygen saturation in Arterial blood by Pulse oximetry Heart rate Body temperature Systolic And Diastolic Provider Name and Address Organization Details Last Updated DateTime 9 76780.9 9 g 165.1 cm 22 kg/m2 95 % 95 % 86 /min 98.7 [degF] 136/84 mm[Hg] Elida Piedra [facility] 9 15:12:53 Date Recorded Respiratory rate Body weight Body height Body temperature Heart rate Body mass index (BMI) Systolic And Diastolic Provider Name and Address Organization Details Last Updated DateTime 5 82 /min 34428.9 11068 g 167.64 cm 98 [degF] 78 /min 22 kg/m2 132/86 mm[Hg] January Fransico [facility] 5 14:22:09 Date Recorded Body height Body mass index (BMI) Body weight Oxygen saturation Oxygen saturation in Arterial blood by Pulse oximetry Heart rate Body temperature Systolic And Diastolic Provider Name and Address Organization Details Last Updated DateTime 9 165.1 cm 21.7 kg/m2 92759.8 1 g 99 % 99 % 89 /min 98.1 [degF] 150/92 mm[Hg] Elida Piedra [facility] 9 10:44:26 Date Recorded Respiratory rate Body weight Body height Body temperature Heart rate Body mass index (BMI) Systolic And Diastolic Provider Name and Address Organization Details Last Updated DateTime 5 20 /min 15148.5 6232 g 167.64 cm 98.2 [degF] 80 /min 22 kg/m2 118/70 mm[Hg] January Fransico [facility] 5 16:19:32 Date Recorded Respiratory rate Body weight Body height Body temperature Heart rate Body mass index (BMI) Systolic And Diastolic Provider Name and Address Organization Details Last Updated DateTime 5 20 /min 38617.5 2417 g 167.64 cm 98.4 [degF] 80 /min 22.8 kg/m2 144/86 mm[Hg] January Fransico [facility] 5 10:52:07 Social History Question Answer Notes LastModified by Organizat ion Details LastModified Time Tobacco Smoking Status Former Smoker 4 months Elida Piedra MA [facility] 03/25/2019 15:10:01 Do You Have An Advance Directive? No Information not available 05/05/2015 What Is Your Level Of Caffeine Consumption? Moderate Information not available 05/05/2015 How Much Tobacco Do You Chew? None Information not available 05/05/2015 Education 9 Information no t available 05/05/2015 Are There Any Guns Present In Your Home? No Information not available 05/05/2015 Hard Of Hearing Or Deaf In One Or Both Ears? No Information not available 05/05/2015 Legally Blind In One Or Both Eyes? No Information not available 05/05/2015 Marital Status Single Informatio n not available 05/05/2015 What Was The Date Of Your Most Recent Tobacco Screening? 03/25/2019 Information not available 05/06/2019 Performs Monthly Self-breast Exam? No Information not available 05/05/2015 Seat Belts Used Routinely Yes Information not available 05/05/2015 Smoke Alarm In Home Yes Information not available 05/05/2015 How Much Tobacco Do You Smoke? 1 PPD Information not available 05/05/2015 General Stress Level Medium Information not available 05/05/2015 Do You Use Sunscreen Routinely? No Information not available 05/05/2015 On What Date Was Tobacco Cessation Counseling Provided? 05/19/2019 [email or web address] Information not available 05/24/2019 How Many Years Have You Smoked Tobacco? 30 [email or web address] Information not available 05/24/2019 Sex: Unknown Functional Status Question Answer Note LastModified by Organizat ion Details LastModified Time What is your level of alcohol consumption? None [email or web address] Information not available 03/25/2019 Do you or have you ever used smokeless tobacco? Never used smokeless tobacco [email or web address] Information not available 05/24/2019 Do you or have you ever used e-cigarettes or vape? Never used electronic cigarettes [email or web address] Information not available 05/24/2019 Mental Status None recorded. Family History Relationship Description Onset Age of this Age Resolved Age Notes LastModified by Organization Details LastModified Time Mother Hypertensive disorder asavala Not available 2014 14:22:09 Father Hypertensive disorder asavala Not available 2014 14:22:09 Father Hypercholest erolemia asavala Not available 2014 14:22:09 Medical History Condition Response Liver Disease Y Acid Reflux (GERD) Y Immunizations Vaccine Type Date Status Note Provider Kory diaz and Address Organization Details Recorded Time Tdap 10/13/2005 completed Asad Interiano MD Attn: [employer],[address], [place], [address], [place] [facility] 05/05/2015 14:33:36 Past Encounters Encounter ID Performer Location Encounter Start Date Encounter Closed Date Diagnosis/Indication Diagnosis SNOMED-CT Code Diagnosis ICD10 Code Diagnosis Note [id number] MD Sarah Mahajan (Adult Med) [address] [place] [address] 05/05/2015 13:54:34 05/05/2015 14:45:17 General examination of patient 428715036 44 y/o WM who was previously seeing Dr. Izquierdo His old records will be useful Tobacco user 227168031 C essation was discussed Disease of liver 915017788 He reports liver issues Prior history of IVDU Fracture of hand 94993490 He fell off a ladder [id number] MD Sarah Mahajan (Adult Med) [address] [place] [address] 08/21/2015 16:00:07 08/21/2015 16:52:24 Steatotic liver disease 636102143 K76.0 Abnormal l iver function 95138047 K76.89 Possibly from his Hepatitis C, he also drinks quite a bit of alcohol. Cessation of alcohol was discussed. i have made it lear that he needs a confirmato ry test for Hep. C Low back pain 328347544 M54.5 He was previously on hydrocodon e from Dr. Izquierdo X-ray of the L/S spine done MRI 07/25/2014 , mild to moderate lower lumbar spondylosi s Pure hypercholesterolemia 996669214 E78.0 Previously on treatment (Fibrate), I have reviewed his labs, his T-Chol is only 203, he may be able to manage this with a diet. His old records revealed a T-Chol of 214 and TG of 500+, he should change his diet and recheck the labs in 6 weeks. He is emphatic that he has not taken any lipid lowering agent in a long time. [id number] MD Sarah Mahajan (Adult Med) [address] [place] [address] 10/09/2015 10:43:22 10/09/2015 16:25:24 Low back pain 748553090 M54.5 He was previously on hydrocodon e from Dr. Izquierdo X-ray of the L/S spine done MRI 07/25/2014 , mild to moderate lower lumbar spondylosi s The repeat MRI done 08/24/2015 reveals, disc bulges and foraminal stenosis (moderate to severe) He should reschedule his appointmen t with the PT, the other option is pain management Chronic hepatitis C 1283 81545 B18.2 His Hepatitis C was confirmed, his US reveals hepatic steatosis, he will be referred to the Hepatologi st. I have advised him to discontinu e the use of alcohol. Disorder o f lipid metabolism 004484395 E78.9 [id number] Dayna Subramanian MD [facility] [address] [place] [address] 03/25/2019 14:25:36 04/05/2019 09:18:47 Obstructive sleep apnea of adult 6310023594 103 G47.33 Chronic ba ck pain greater than three months duration 2666562503 02 G89.29 Vitamin D deficiency 347 64665 E55.9 Hyperlipidemia 28628816 E78.00 Fatigue 89195475 R53.83 [id number] Dayna Subramanian MD [facility] [address] [place] [address] 05/19/2019 10:21:48 05/26/2019 09:00:51 Right side sciatica 1433777101 73282 M54.31 Acute low back pain 2788 18879 M54.5 Viral hepatitis C 658305 07 B19.20 Steatotic liver disease 508804186 K76.0 Vitamin D deficiency 347 09531 E55.9 Screening for malignant neoplasm of prostate 413439634 Z12.5 Health Concerns Section Related Observation LastModified by Organization Detai ls LastModified Time None Recorded Concern Status LastModified by Organization Details LastModified Time None Recorded Advance Directives Directive N: Payers Insurance Date Sequence Insurance Name Policy Number Policy Harrison Covered Member ID Harrison Member ID Guarantor Name 05/26/2019 1 [facility] - DOS PRIOR TO 2021 (MEDICAID REPLACEMENT - HMO) Jordi Fischer [id number] Jordi Fischer Notes Date Note Type Note Provider Name and Address Organization Details Recorded Time 9 text/html FatigueReported by PatientHPIFor severity, patient reportschange in sleep patterns,change in exercise habits, andchanges in normal activities. For modifying factors, patient reportsnot taking vitaminsbut reportsno new stressors in life. For associated symptoms, patient reportssnoringbut reportsno drug/alcohol withdrawal,no depression,no anxiety,periods of not breathing (apnea) have not been observed, andno recent change in weight. For quality, patient reportscontinuousandsymptom s worse during the day(worse in the mornings and then at the end of a work day.). For duration, patient reportsintermittent. For context, patient reportsno problems/stress at work or home(decreased libido). For timing, (8 months and its getting worse.). Back PainReported by PatientHPIFor severity, patient reportspain level 10/10(mornings when patient gets up is a 10/10.). For aggravating factors, patient reportsmovement/positioning (wakes the patient up out of bed.). For context, patient reportsoveruse(wear and tear. heavy lifting, going up and down ladders.). For associated symptoms, patient reportsno fever,no weak limbs,no numbness of the legs/feet,no tingling,no incontinence, andno shortness of breath. For location, (lumbar spine. in the middle of the lower back.). For quality, (constant dull pain). For duration, (constant). For onset/timing, (2014 and began to get a lot worse in the past 8 months.). For alleviating factors, (was taking back and body and stopped taking it because patient thinks it is upsetting his stomach).ROS as noted in the HPI establishing care. back pain . fatigue. Dayna Subramanian MD Attn: [employer],[address] [place], [address], [facility] 04/04/2019 17:36:23 9 text/html Hip(s)Reported by PatientHPIFor associated symptoms, patient reportsradiation down legbut reportsno weakness,no numbness,no tingling,no swelling,no redness,no warmth,no ecchymosis,no catching/locking,no popping/clicking,no buckling,no grinding,no instability,no drainage,no fever,no chills,no weight loss, andno change in bowel/bladder habits(to the knee(radiating)). For location, patient reportsright. For quality, patient reportsthrobbinganddeep. For severity, patient reportssevereandworst pain 10/10. For timing, patient reportscannot identify. For context, patient reportscannot identify. For alleviating factors, patient reportsnothing helps. For aggravating factors, patient reportssitting,standing,lyi ng down,twisting,bending/squat ting,pushing/pulling, androm. For previous surgery, patient reportsnone. For prior imaging, patient reportsnone. For previous injections, patient reportsnone. For previous pt, patient reportsnone. For work related, patient reportsno. For working, patient reportsregular duty. For duration, (2 weeks).patient hasnt worked in 2 weeks due to the pain of the right hip Abnormal Liver TestsReported by PatientHPIFor context, patient reportsrecent weight gain (nafld),history of chronic liver disease, andacetominophen use. For associated symptoms, patient reportsruq abdominal painandback pain. For duration, patient reportspresent for 1-5 years. For severity, (patient reports positive test for hepatitis c). Back PainReported by PatientHPIFor location, patient reportspain radiating to the buttocksandpain radiating to the legs(lumbar spine). For quality, patient reportssharp. For severity, patient reportsmoderate (5-7). For aggravating factors, patient reportsmovement/positioning ,twisting,flexing back, andextending back. For associated symptoms, patient reportsweak limbsbut reportsno fever,no numbness of the legs/feet,no tingling,no incontinence, andno shortness of breath(right leg weak). For duration, patient reportschronic. For onset/timing, patient reportsrecurrent episode. For context, patient reportsoveruse,unusual activity,prior back problems, andused medications for back pain. For alleviating factors, patient reportsrestandrelieved by changing position.ROS as noted in the HPI Dayna Subramanian MD Attn: Accounting,[address], [place], [address], [facility] 05/24/2019 19:22:06
[2025-05-05 08:49] VITALS: BP 111/78; PULSE 93; RESP 20; TEMP 37.1; O2SAT 100
--- NOTE | 2025-05-05 10:31 | ED_ITS ---
HPI - Back Pain/Injury General Chief Complaint: Back Pain/Injury Stated Complaint: back pain, dark urine Time Seen by Provider: 05/05/25 10:31 Focused HPI: This is a 54 year old male that presents to the ER for low back pain. Ongoing over the last couple of days. Reports radiation into the legs bilaterally. Reports he was loading chunks of broken concrete onto the back of his truck before it started. He also reports dark urine which started a couple days ago. Reports subjective fevers. Denies saddle anesthesia, bowel/bladder incontinence. GENERAL: Well-appearing, well-nourished, and in no acute distress. HEAD: Normocephalic, atraumatic. CHEST: Clear to auscultation. ?No respiratory distress. HEART: Regular rate and rhythm.? NEURO: ?Alert and oriented x3. Patient screened in triage and initial orders placed.? ?Additional care and disposition to be based upon?diagnostic testing and treatment. Related Data Allergies Allergy/AdvReac Type Severity Reaction Status Date / Time epinephrine Allergy Unknown i flop on Verified 05/05/25 11:22 the floor tramadol AdvReac Mild Jittery Verified 05/05/25 11:22 Review of Systems 2 Review of Systems: All systems reviewed & are unremarkable except as noted in HPI and below PMFSH Past Medical History Medical History (Updated 05/05/25 @ 13:01 by Vane Gant PA-C) History of hepatitis C Surgical History Surgical History (Updated 05/25/20 @ 14:29 by Margarette Chauhan MD) No significant past surgical history Family History Family History (Updated 06/09/14 @ 07:13 by DOCTOR UNKNOWN) Other Family history of arthritis Family history of malignant neoplasm Hypertension Social History Social History Smoking status: Smoker, status unknown Alcohol intake: current Gender identity (if verbalized by the patient): Male Exam 2 Narrative: GENERAL: Well-appearing, well-nourished, and in no acute distress. HEAD: Normocephalic, atraumatic. EYES: EOMI. CHEST: Clear to auscultation. No respiratory distress. No wheezes rales or rhonchi HEART: Regular rate and rhythm. No murmur heard. Normal peripheral pulses. EXTREMITIES: Normal range of motion. No edema. SKIN: Warm, dry, no rash. NEURO: No focal deficits. Alert and oriented x3. Normal gait PSYCH: Normal mood and affect Course Course Emergency Course: Patient updated on his workup. Resting comfortably Vital Signs Vital signs: Vital Signs Temperature 98.7 F 05/05/25 08:49 Pulse Rate 93 05/05/25 08:49 Respiratory Rate 20 05/05/25 08:49 Blood Pressure 111/78 05/05/25 08:49 Pulse Oximetry 100 05/05/25 08:49 Oxygen Delivery Room Air 05/05/25 08:49 Temperature 98.1 F 05/05/25 11:29 Pulse Rate 76 05/05/25 11:29 Respiratory Rate 20 05/05/25 11:29 Blood Pressure 143/76 H 05/05/25 11:29 Pulse Oximetry 100 05/05/25 11:29 Oxygen Delivery Room Air 05/05/25 08:49 MDM - Back Pain/Injury MDM Narrative Medical decision making narrative: Patient presents emergency department for low back pain ongoing after heavy lifting a couple of days prior. His vitals are stable. He is neurologically intact. CBC with leukocytosis to 14.6. This does appear stable from previous labs. Also shows normocytic anemia hemoglobin 13.5. Metabolic panel with mild hypokalemia, this was replaced. Magnesium is normal. Urine without evidence of infection. CT abdomen and pelvis is without acute findings. Shows degenerative changes in spine. Patient updated on his workup and agrees with plan of care. Instructed to have follow-up with primary for further evaluation. He was given warnings to return to the ER Differential Diagnosis Differential diagnosis: Likely lumbar radiculopathy, sciatica, strain of lumbar region and other (kidney stone, RENEA, UTI) Lab Data Attestation: I reviewed the patient's lab results. 05/05/25 10:58 05/05/25 10:58 Labs: Lab Results 05/05/25 05/05/25 Range/Units 10:54 10:58 WBC 14.6 H (4.5-10.0) K/mm3 RBC 4.32 L (4.6-6.20) M/mm3 Hgb 13.5 L (14.0-18.0) g/dL Hct 40.1 L (42.0-52.0) % MCV 92.8 (80-100) fl MCH 31.3 (26-34) pg MCHC 33.7 (32-36) g/dl RDW 11.8 (11.5-14.5) % Plt Count 267 (150-375) k/mm3 MPV 8.3 (7.4-10.4) fl Immature Gran % (Auto) 0.7 H (0-0.5) % Neut % (Auto) 75.6 H (45.5-73.1) % Lymph % (Auto) 11.2 L (18.3-44.2) % [place] % (Auto) 11.6 H (2.6-8.5) % Eos % (Auto) 0.5 (0-4.4) % Baso % (Auto) 0.4 (0.2-1.2) % Lymph # (Auto) 1.63 (0.9-3.2) K/mm3 [place] # (Auto) 1.7 H (0.1-0.6) K/mm3 Eos # (Auto) 0.1 (0-0.3) K/mm3 Baso # (Auto) 0.1 (0.0-0.1) K/mm3 Abs Immat Gran (auto) 0.10 H (0.00-0.031) K/mm3 Absolute Neuts (auto) 11.0 H (1.3-6.7) K/mm3 Absolute Nucleated RBC 0.000 (0.0-0.012) K/mm3 Nucleated RBC % 0.0 (0.0-0.2) % Sodium 135 L (137-145) mmol/L Potassium 3.3 L (3.4-5.0) mmol/L Chloride 96 L (98-107) mmol/L Carbon Dioxide 30 (22-30) mmol/L Anion Gap 9 (4-12) mmol/L BUN 9 (9-20) mg/dL Creatinine 0.76 (0.7-1.3) mg/dL Estim Creat Clear Calc 82 ml/min Estimated GFR > 60 (59 - ) Glucose 98 (65-110) mg/dL Calcium 9.3 (8.4-10.2) mg/dL Magnesium 2.1 (1.6-2.3) mg/dL Total Bilirubin 0.4 (0.2-1.3) mg/dL AST 28 (17-59) U/L ALT 22 (6-50) U/L Alkaline Phosphatase 82 (38-126) U/L Total Creatine Kinase 39 L (55-170) U/L Total Protein 7.8 (6.3-8.2) g/dL Albumin 4.0 (3.5-5.1) g/dL Lipase 39 (23-300) U/L Urine Color Yellow (Yellow) Urine Appearance Clear (Clear) Urine pH 6.5 (5.0-9.0) Ur Specific [place] 1.004 (1.001-1.035) Urine Protein Negative (Negative) mg/dL Urine Glucose (UA) Negative (Negative) mg/dL Urine Ketones Negative (Negative) mg/dL Ur Blood (Man) Negative (Negative) Urine Nitrate Negative (Negative) Urine Bilirubin Negative (Negative) Urine Urobilinogen 1.0 (<2.0) mg/dL Leukocyte Esterase Rfl Negative (Negative) GENOVEVA/UL Imaging Data Radiologist's impression: ITS Impressions Abdomen/Pelvis CT 05/05/25 10:55 IMPRESSION: No evidence of acute pathology in the abdomen and pelvis. Critical Care Time Critical Care Time Critical Care Time: No Discharge Plan Discharge Clinical Impression: Hypokalemia Low back pain Qualifiers: Chronicity: acute Back pain laterality: midline Sciatica presence: with sciatica Sciatica laterality: bilateral sciatica Qualified Code(s): M54.42 - Lumbago with sciatica, left side Anemia Qualifiers: Anemia type: unspecified type Qualified Code(s): D64.9 - Anemia, unspecified Leukocytosis Qualifiers: Leukocytosis type: unspecified Qualified Code(s): D72.829 - Elevated white blood cell count, unspecified Patient Disposition: Home Condition: Stable Instructions: Hypokalemia (ED), Acute Low Back Pain (ED), Anemia (ED) Additional Instructions: Return to the ER if you experience weakness, numbness, bowel/bladder incontinence, or any other symptoms that are concerning to you Rest, use ice/heat, take anti-inflammatories (Aleve, Ibuprofen, Naproxen, etc) or Tylenol as needed for pain as well as muscle relaxer (Flexeril) as needed for pain. Muscle relaxers can make you drowsy, do not drive if you take this. Take steroid taper as prescribed. Lidocaine patch to the area of pain as needed Follow up with primary care doctor Patient Language: Mongolian Prescriptions: New cyclobenzaprine 10 mg tablet 10 mg PO TID PRN (Reason: muscle spasm) Qty: 14 0RF methylprednisolone 4 mg tablets,dose pack See Rx Instructions .ROUTE .COMPLEX Qty: 21 0RF Rx Instructions: orally per package directions lidocaine 5 % adhesive patch,medicated 1 patch topical DAILY Qty: 15 0RF Rx Instructions: leave on most painful area for up to 12 hrs No Action tramadol 50 mg tablet 50 - 75 mg PO TID PRN (Reason: pain) Qty: 30 0RF Follow-up/Referrals: PHYSICIAN,SQL REPORT DEVELOPER [Primary Care Provider] - Joelle Santos DO [Physician] -
[2025-05-05 11:01] LABS: Add Urine Microscopic? NO; Appearance Urine Clear (Clear); Glucose Urine UA Negative (Negative); Leukocyte Esterase Ur Negative LEU/UL (Negative); Nitrate Urine Negative (Negative); Specific Grav Ur 1.004 (1.001-1.035)
[2025-05-05 11:02] LABS: Hematocrit 40.1 % (42.0-52.0); Hemoglobin 13.5 g/dL (14.0-18.0); Immature Granulocyte Percent A 0.7 % (0-0.5); Lymphocytes Absolute Auto 1.63 K/mm3 (0.9-3.2); Mean Corpuscular HGB Conc 33.7 g/dl (32-36); Mean Corpuscular Hemoglobin 31.3 pg (26-34); Mean Corpuscular Volume 92.8 fl (80-100); Nucleated Red Blood Cells Absolute Auto 0.000 K/mm3 (0.0-0.012); Nucleated Red Blood Cells Perc 0.0 % (0.0-0.2); Platelet Count Result 267 k/mm3 (150-375); Red Blood Count 4.32 M/mm3 (4.6-6.20); White Blood Count 14.6 K/mm3 (4.5-10.0)
[2025-05-05 11:16] LABS: Alanine Aminotransferase 22 U/L (6-50); Albumin Level 4.0 g/dL (3.5-5.1); Alkaline Phosphatase 82 U/L (38-126); Anion Gap 9 mmol/L (4-12); Aspartate Amino Transferase 28 U/L (17-59); Bilirubin,Total 0.4 mg/dL (0.2-1.3); Blood Urea Nitrogen 9 mg/dL (9-20); Calcium 9.3 mg/dL (8.4-10.2); Carbon Dioxide 30 mmol/L (22-30); Chloride 96 mmol/L (98-107); Creatine Kinase 39 U/L (55-170); Estimated CRCL calculation 82 ml/min; Estimated Glomerular Filt Rate > 60; Glucose 98 mg/dL (65-110); Lipase 39 U/L (23-300); Potassium 3.3 mmol/L (3.4-5.0); Sodium 135 mmol/L (137-145); Total Protein 7.8 g/dL (6.3-8.2)
[2025-05-05 11:29] VITALS: BP 143/76; PULSE 76; RESP 20; TEMP 36.7; O2SAT 100
[2025-05-05 11:34] LABS: Magnesium 2.1 mg/dL (1.6-2.3)
[2025-05-05] MEDS: SODIUM CHLORIDE 0.9% IV 1,000 ML 999 ML IV CONT (11:35)
[2025-05-05] MEDS: ACETAMINOPHEN 500 MG TABLET 1000 MG PO (11:37)
[2025-05-05] MEDS: LIDOCAINE 5% PATCH 1 PATCH TRANSDERM (11:38)
[2025-05-05] MEDS: POTASSIUM CHLORIDE 20 MEQ ER TABLET 40 MEQ PO (11:38)
--- OUTSIDE RECORDS SUMMARY | 2025-05-05 12:05 | XMS_ITS | Continuity of Care Document ---
Author Organization [facility] Address [address] [place] [address] [place] [address] Phone Care Team Providers Care Spoke Maker Name Role Phone Stephane Izquierdo MD Unavailable Unavailable Allergies, Adverse Reactions, Alerts Substance Reaction Status Criticality epinephrine Active No Information Medications Medication Instructions Dosage Effective Dates (start - stop) Status Comments naproxen 500 mg tablet take 1 tablet (500MG) by oral route 2 times every day with food 500 MG - Active [place] 5 mg-325 mg tablet take 1 tablet by oral route every 6 hours as needed for pain - Active avoid driving or operate machines fenofibrate 160 mg tablet take 1 tablet (160MG) by oral route every day 160 MG - Active Procedures Procedure Date OFFICE/OUTPATIENT VISIT, [facility] PREV VISIT, [facility]), AGE 40-64 Advance Directives Directive Yes / No Effective Date File Name No Information Encounters Encounter Description Practice Location Reason(s) For Visit Diagnoses Date Provider Providers Copied on Encounter OFFICE/OUTPA TIENT VISIT, [facility], [address] [place], [place] [address], [id number], tel:[phone] [facility] back pain (chief complaint) LFT (chief complaint) alcohol (chief complaint) Unspecified chronic liver disease without mention of alcoholOther and unspecified hyperlipidemiaLumba goNondependent alcohol abuse, continuous drinking behavior [address]ón. [address] [facility] [place], [id number] , [place]. tel:[phone] Referring Provider: Stephane Izquierdo, [address] [facility] [place], [id number]. tel:[phone] PREV VISIT, NEW, AGE 40-64 [facility], [address], [place], [place], [id number], [place] tel:[phone] [facility] Medicine Physical (chief complaint) Routine Medical ExamRoutine Medical Exam 4 Tim[address] Calderón. [address], [place], [place], [id number] , [place]. tel:[phone] Family History Family Member Type Diagnosis Age At Onset Father Problem (finding) Hypertension Brother Problem (finding) Alive and well Mother Problem (finding) Alive and well Payers Payer name Insurance type Covered green party ID Authoriza tion(s) No Information Social [...] Mental Status Date Cognitive Assessment Orientation - [place] ed to time, place, person, situation.
[2025-05-05] MEDS: KETOROLAC 15 MG/ML VIAL (*BKC) IV PUSH (12:50)
== END 2025-05-05 13:14 | disposition home or self-care (01) ==
PROVIDERS: Emergency Provider Physician Assistant
DX: E87.6 Hypokalemia (principal); M54.42 Lumbago with sciatica, left side; D64.9 Anemia, unspecified; D72.829 Elevated white blood cell count, unspecified; Z86.19 Personal history of other infectious and parasitic diseases
CPT/HCPCS: 36415; 74176; 80053; 81003; 82550; 83690; 83735; 85025; 96361; 96374; 99284; A9270; J1885; J7030